=== PATIENT | female | born 1990 | race Hispanic/Latino ===

== ENCOUNTER 2020-10-03 13:10 | Emergency (ER) | payer MEDICAID, OTHER, SELFPAY ==
[~2020-10-03] VITALS: Ht 154.9 cm; Wt 77.5 kg
[2020-10-03] MEDS ORDERED: IBUP200T45 PO (13:17)
[2020-10-03] MEDS ORDERED: ACETAMINOPHEN 325 MG TAB PO ONE (14:25)
--- NOTE | 2020-10-03 14:43 | REP ---
INDICATION: bilat pain dorsal lenhrn1xx/5th digits COMPARISON: None. TECHNIQUE: AP, lateral, bilateral oblique views right and left hand. FINDINGS: The osseous structures and joint spaces are intact, symmetric and normal bilaterally. There is no evidence for acute fracture or dislocation. Surrounding soft tissues are unremarkable. No subcutaneous emphysema or radiodense foreign body. IMPRESSION: Normal bilateral hand series. No acute fracture or dislocation. <Electronically signed by Brooks Short > 10/03/20 [id number]
[2020-10-03 15:35] VITALS: BP 131/73
== END 2020-10-03 15:41 | disposition home or self-care (01) ==
LOC: M ED 13:10
DX: M25.541 Pain in joints of right hand (principal); M25.542 Pain in joints of left hand; M70.841 Other soft tissue disorders related to use, overuse and pressure, right hand; M70.842 Other soft tissue disorders related to use, overuse and pressure, left hand; Z88.0 Allergy status to penicillin

== ENCOUNTER → 2021-02-14 | Outpatient (CLI) | payer MEDICAID ==
[~2021-02-14] MED LIST: IBUP200T45 PO; TYLE650T38 PO
== END ==
LOC: M LABSMTC 10:01
PROVIDERS: ATTEND Anesthesiology
DX: Z01.812 Encounter for preprocedural laboratory examination (principal); Z20.822 Contact with and (suspected) exposure to COVID-19

== ENCOUNTER 2021-02-19 08:33 | Day surgery (SDC) | payer MEDICAID, SELFPAY ==
[~2021-02-19] VITALS: Ht 152.4 cm; Wt 76.4 kg
[~2021-02-19 08:33] MED LIST changes: +LIDOCAINE 1% MDV 20ML VIAL SQ PRN; +LR 1,000 ML IV ONE; +ceFAZolin SOD 2 GM in IV 1 EA IV ONE
[2021-02-19] MEDS ORDERED: propofoL 200 MG/20 ML VIAL As Ordered ONE (08:50)
[2021-02-19] MEDS ORDERED: fentaNYL 100 MCG/2 ML INJECTION (J3010) As Ordered ONE (08:50)
[2021-02-19] MEDS ORDERED: MIDAZOLAM INJ 2MG/2ML VIAL (J2250 PER 1MG) As Ordered ONE (08:50)
[2021-02-19] MEDS ORDERED: LIDOCAINE 2% 100MG/5ML SDV (FOR ANES.) As Ordered ONE (08:50)
[2021-02-19] MEDS ORDERED: BUPIVACAINE/EPIN 0.25% 30 ML VIAL As Ordered ONE (10:56)
[2021-02-19] MEDS ORDERED: ONDANSETRON 4MG/2ML VIAL As Ordered ONE (11:21)
[2021-02-19] MEDS ORDERED: ACETAMINOPHEN 1000MG 100ML IV BTL (OFIRMEV) (J0131 PER 10MG) As Ordered ONE (11:21)
[2021-02-19] MEDS ORDERED: KETOROLAC 60MG 2ML VIAL As Ordered ONE (11:21)
--- NOTE | 2021-02-19 11:52 | ROOPDOC ---
[facility] Report Of Operation Report of Operation DATE OF PROCEDURE: 02/19/21 PREPROCEDURE DIAGNOSES: Left carpal tunnel syndrome. POSTPROCEDURE DIAGNOSES: Same. PROCEDURE PERFORMED: Left open carpal tunnel release. SURGEON: Dr. Dariusz West MD [employer]INEER: None ANESTHESIA: Dr. Olguin local/MAC 4 cc quarter percent Marcaine with epinephrine . ESTIMATED BLOOD LOSS: Approximately 5 mL. COMPLICATIONS: None. REMARKS: None. FINDINGS: SPECIMENS REMOVED: None PROCEDURE NOTE: This 30-year-old female had signs and symptoms as well as nerve conduction evidence of median neuropathy carpal tunnel syndrome at the wrist. I had a medical artist service during the preoperative visit. I answered many of her questions. She wished to go ahead with surgery I marked the left hand she had no further questions.. DESCRIPTION OF PROCEDURE: Patient was brought to the operating theater. They were placed supine on the operating room table. Hand table was used. Limb was prepped and draped in the usual sterile fashion. I used chlorhexidine-based prep solution allowing over 3 minutes drying time prior to draping. 2 g of IV Ancef was given prior to starting the case. Local/MAC anesthesia was used. Preoperative timeout was performed confirming the site the patient and the surgery. I began by infiltrating 4 mL of 0.25 percent Marcaine with epinephrine in and around the proposed incision site. This was on the palmar surface just distal to the wrist crease longitudinally in line with the fourth digit. The incision length was approximately 2 cm. I allowed the local anesthetic time to work. I carried the dissection down through skin and subcutaneous tissue to meticulous hemostasis. I incised the palmar fascia in line with the skin incision. I i ncised the transverse carpal ligament in line with the skin incision fully proximally and distally. Nerve appeared in continuity throughout the case. I thoroughly irrigated the wound with normal saline. I closed the subcutaneous tissues with 2-0 Vicryl sutures and the skin with 3-0 Ethilon in a horizontal mattress fashion. Wound cleaned with wet and dry dressing followed by applic ation of non stick dressing, 4 x 8 gauze and overwrapped with Jenelle type dressing. Patient was woken up from their sedation and transferred off the operating room table and taken to postanesthetic care unit in stable condition. All sponge, needle, instrument counts were correct. No complications. The patient is to start immediate hand wrist and elbow exercises but avoid heavy lifting and gripping-type activities for the first 6 weeks. They will be discharged home according to day surgery criteria. They can change the dressing postoperative day 1 and avoid showering over top or getting it wet for the first 14 days. Follow-up in the office in 2 weeks' time. Postoperative wound instructions were given. It was recommended to keep the wound clean and dry. Dressing changes as needed. It was reinforced with the patient that they should call us or be seen immediately for redness, drainage, or fever. Risk factors for harms from taking opioid medications discussed and assessed including but not limited to personal or family history of substance use disorder, anxiety or depression, , age 65 or older, COPD or other underlying respiratory conditions, and renal or hepatic insufficiency. Discussed with patient concerns and determined any harms they may experience or be currently experiencing such as nausea or constipation, feeling sedated or confused, breathing interruptions during sleep, or taking or craving more opioids than prescribed or difficulty controlling use (addiction). Discussed early warning signs of overdose including confusion, sedation, slurred speech, abnormal gait. DARIUSZ WEST MD Feb 19, 2021 11:52
[2021-02-19] MEDS ORDERED: LR 1,000 ML IV SCH (12:45)
[2021-02-19] MEDS ORDERED: MORPHINE 2 MG/ML 1ML VIAL (J2270) IV PRN (12:45)
[2021-02-19] MEDS ORDERED: PERCOCET 5MG/325MG TAB PO PRN (12:45)
[2021-02-19] MEDS ORDERED: ONDANSETRON 4MG/2ML VIAL IV PRN (12:45)
[2021-02-19] MEDS ORDERED: ACETAMINOPHEN TAB 650MG DOSE (2X325MG) PO PRN (12:45)
[2021-02-19 12:55] VITALS: BP 134/74
== END 2021-02-19 12:55 | disposition home or self-care (01) ==
LOC: M SDC 08:33
PROVIDERS: ATTEND Orthopaedic Surgery Sports Medicine
DX: G56.02 Carpal tunnel syndrome, left upper limb (principal); Z88.0 Allergy status to penicillin
CPT/HCPCS: 64721; 81025; J0131; J0690; J1885; J2250; J2405; J3010